=== PATIENT | male | born 1995 | race Caucasian/White ===

== ENCOUNTER 2024-03-21 04:20 | Emergency (ER) | payer OTHER ==
[~2024-03-21] VITALS: Ht 175.3 cm; Wt 103.4 kg
[2024-03-21 04:31] VITALS: BP 121/82; PULSE 78; RESP 20; TEMP 97.7; O2SAT 98
[2024-03-21] MEDS ORDERED: MIRABULK PO (05:15)
[2024-03-21] MEDS ORDERED: PHEN26CR2 RC (05:15)
[2024-03-21 05:24] VITALS: BP 121/82; PULSE 78; RESP 20; TEMP 97.7; O2SAT 98
== END 2024-03-21 05:24 | disposition home or self-care (01) ==
LOC: MED 04:20
DX: K64.4 Residual hemorrhoidal skin tags (principal); Z79.899 Other long term (current) drug therapy
CPT/HCPCS: 99282